=== PATIENT | female | born 1970 | race Caucasian/White ===

== ENCOUNTER 2017-05-28 07:41 | Day surgery (SDC) | payer OTHER ==
[~2017-05-28] VITALS: Ht 167.6 cm; Wt 86.0 kg
[~2017-05-28 07:41] MED LIST: CALCIUM 500 +1 EACH PO; ERGOCALCIF50000 UNIT PO; LO-DOSE ASPIRIN81 M1 PO; MAXALT10 MG PO; MIRENA1 EACH IY; TOPAMAX100 MG PO; VITAMIN B-1250 MC3 PO
[2017-05-28] MEDS ORDERED: NAPROXEN SODIU220 M1 PO (08:25)
[2017-05-28 08:36] VITALS: BP 110/55
[2017-05-28] MEDS ORDERED: IBUPROFEN800 MG PO (13:26)
[2017-05-28 15:00] VITALS: BP 108/61
[2017-05-28 15:26] VITALS: BP 119/58
== END 2017-05-28 15:34 | disposition home or self-care (01) ==
LOC: SDC 07:41
PROC: 0UBC7ZX Excision of Cervix, Via Natural or Artificial Opening, Diagnostic (ICD-10-PCS; principal; 2017-05-28)
DX: D06.9 Carcinoma in situ of cervix, unspecified (principal); Z79.82 Long term (current) use of aspirin
CPT/HCPCS: 88305; 88307; 88342 TC; J0690; J1100; J1885; J2250; J2405; J3010; J7120; Q0175